=== PATIENT | male | born 1945 | race Caucasian/White ===

== ENCOUNTER → 2016-06-06 | Outpatient (CLI) | payer MEDICARE, OTHER ==
[~2016-06-06] MED LIST: ALLOPURINOL100 MG PO; ALTACE2.5 MG PO; ALTACE5 MG PO; ASPIRIN (CHILDR81 MG PO; ASPIRIN LO-DOSE81 MG PO; ATIVAN 1 MG1 MG PO; BRILINTA90 MG PO; BUMETANIDE2 MG PO; CARAFATE1 GM PO; CATAPRES0.1 MG PO; COLACE100 MG PO; COLCHICINE0.6 MG PO; CORDARONE,PACE200 MG PO; CPAP INH; DILAUDID 2MG(HYD2 MG PO; DIOVAN320 MG PO; FLORASTOR250 MG PO; GLUCOPHAGE XR500 M1 PO; HYDROCODON-ACE1 EAC4 PO; HYDRODIURIL25 MG PO; HYZAAR 50-12.51 TAB PO; JUICE PLUS; K-TAB ER20 MEQ PO; LEVAQUIN 750 M750 MG PO; LIPITOR20 M1 PO; LIPITOR40 MG PO; LIPITOR80 MG PO; LOPRESSOR25 MG PO; LOPRESSOR50 MG PO; MIRALAX17 GM PO; MOBIC15 MG PO; MUCINEX600 MG PO; NASACORT16.9 ML NOSE; NITROSTAT0.4 MG SL; NORCO 5-325 MG1 TAB PO; NORCO 5-325 TA1 EACH PO; NORVASC10 MG PO; NORVASC5 MG PO; PLAVIX75 MG PO; PROAIR HFA8.5 GM INH; PROTONIX20 MG PO; PROVENTIL OR V6.7 GM INH; RISPERDAL0.5 MG PO; SERTRALINE HCL100 MG PO; TYLENOL325 MG PO; VALIUM5 MG PO; VIAGRA100 MG PO; WAL-ZYR10 MG PO; XARELTO10 MG PO; ZESTRIL2.5 MG PO; ZOLOFT100 MG PO; ZYLOPRIM100 MG PO; ZYRTEC10 MG PO
--- NOTE | ~2016-06-06 | PUL ---
PATIENT'S NAME: MIGUEL MURPHY [facility] AGE: 70 Y [address] ROOM: [place] [address] LOCATION: [facility] ADMIT DATE: 06/06/2016 Pulmonary DISCHARGE DATE: FAMILY PHYSICIAN: Dell Brown MD ATTENDING PHYSICIAN: Dell Brown NAME OF PROCEDURE: Sleep study DATE OF PROCEDURE: 06/06/16 TECH: JANETH Cunha TEST #: [facility] [place] [id number] MEDICAL HISTORY: Patient is a 70-year-old gentleman with history of obstructive sleep apnea. SLEEP STAGE SUMMARY: The patient was studied for 492 minutes of which he slept 281 minutes. He fell asleep in 66 minutes and slept for 58% of the night. Sleep architecture revealed a decline in slow wave and REM sleep. RESPIRATORY SUMMARY: Oxygen saturations ranged from 85-90% and were below 88% for 10 minutes. This study was done to titrate CPAP which was initiated at 6cm and titrated to 16 cm with good control of the respiratory events. EKG SUMMARY: No dysrhythmias. LIMB MOVEMENT SUMMARY: No clinically relevant periodic limb movements were noted. SUMMARY: Impression obstructive sleep apnea responsive to CPAP at 16 cm. PLAN: Suggest CPAP at 16 cm. Patient will receive results from the ordering provider. JASMYN LEZAMA MD [facility]/ /[id number] dtt: 06/13/16 1455 , Jasmyn Lezama dtd: 06/08/16 1528
== END | disposition disaster alternative care site (69) ==
LOC: GSLP 19:34
DX: G47.33 Obstructive sleep apnea (adult) (pediatric) (principal)

== ENCOUNTER → 2016-08-21 | Day surgery (SDC) | payer MEDICARE, OTHER ==
[~2016-08-21] VITALS: Ht 180.3 cm; Wt 112.8 kg
--- NOTE | ~2016-08-21 | OR ---
PATIENT'S NAME: MIGUEL JUAREZ [facility] AGE: 70 Y [address] ROOM: [place] [address] LOCATION: [facility] – [place], [place] ADMIT DATE: 08/21/2016 OR/Procedure Report DISCHARGE DATE: FAMILY PHYSICIAN: Dell Brown MD ATTENDING PHYSICIAN: Gertrude Blackburn SURGEON: Gertrude Blackburn DO SUPERINTENDENT CONTAINER TERMINAL: DATE OF PROCEDURE: 08/21/2016 PREOPERATIVE DIAGNOSIS: Sternal malunion. POSTOPERATIVE DIAGNOSIS: Sternal malunion. PROCEDURES PERFORMED: Rigid fixation of the sternum with two sternal plates. BRIEF HISTORY: Mr. Juarez is a 70-year-old white male with the above noted diagnosis, who had been brought to the Operative Suite today after informed consent was obtained. DESCRIPTION OF SURGERY: His previous surgical incision and chest were sterilely prepped and draped in usual fashion after induction of a general anesthetic. The incision was opened from the mid incision to the anterior epigastric portion of the incision, and dissection was carried out to the level of the sternum with electrocautery. The sternum was mildly, or was minimally by approximately 5 mm at its maximum. There was some plate in each hemisternum, which the patient was complaining about. Dissection was carried out over the lateral hemisternum onto the rib surface. We selected two straight plates, and placed these on the fourth and sixth ribs with 16-mm screws to rigidly fix the hemisternum. Once this was completed, copious amounts of antibiotic-infused saline was used to irrigate the sternum, and then the incision was closed in a layered fashion with 0 Vicryl, 2-0 Vicryl, and 4-0 Monocryl. Pressure dressings were applied. The patient tolerated the procedure well. GERTRUDE BLACKBURN DO MCB/modl /[id number] d: 08/24/169 t: 08/25/16 0841, OPERATIVE SUMMARY
[2016-08-21 11:05] LABS: BASOPHIL % 0.3 %; EOSINOPHIL # 0.3 K/uL (0.0-0.5); EOSINOPHIL % 3.3 %; HEMOGLOBIN 13.2 g/dL (11.0-16.0); IMMATURE GRANULOCYTE % 0.3 %; LYMPHOCYTE # 1.1 K/uL (0.8-4.0); LYMPHOCYTE % 13.8 %; MCH 29.3 pg (27.0-34.0); MONOCYTE # 0.4 K/uL (0.0-1.0); MONOCYTE % 5.4 %; MPV 10.8 fl (9.4-12.4); NEUTROPHIL # (ANC) 5.8 K/uL (1.4-9.0); NEUTROPHIL % 76.9 %; NRBC % 0 /100WBC (0-0.00); RBC 4.51 M/uL (3.50-5.50); RDW-CV 14.1 % (11.9-14.6); WBC 7.6 K/uL (4.0-11.0)
[2016-08-21 11:06] LABS: HEMATOCRIT 38.8 % (37.0-53.0); PLATELET COUNT 145 K/uL (150-450)
[2016-08-21 11:13] LABS: INR - (THERAPEUTIC) 0.95 (0.92-1.07)
[2016-08-21 11:21] LABS: ALBUMIN 3.8 gm/dL (3.5-5.0); ANION GAP 11.9 (10.0-19.0); BLOOD UREA NITROGEN 20 mg/dL (6-24); CALCIUM 8.8 mg/dL (8.5-10.5); CHLORIDE 109 mMol/L (96-110); CO2 26 mMol/L (22-32); CREATININE 1.1 mg/dL (0.6-1.3); PHOSPHORUS 2.6 mg/dL (2.5-4.9); POTASSIUM 3.9 mMol/L (3.7-5.1); SODIUM 143 mMol/L (135-145)
[2016-08-21 11:26] LABS: ESTIMATED GFR (MDRD EQUATION) > 60
[2016-08-21 12:00] LABS: BILIRUBIN URINE NEGATIVE (NEGATIVE); BLOOD URINE NEGATIVE /UL (NEGATIVE); COLOR URINE YELLOW (YELLOW); GLUCOSE URINE NEGATIVE (NEGATIVE); KETONE URINE NEGATIVE (NEGATIVE); LEUKOCYTES URINE NEGATIVE /UL (NEGATIVE); NITRITE URINE NEGATIVE (NEGATIVE); PROTEIN URINE NEGATIVE (NEGATIVE); SPEC GRAVITY URINE 1.015 (1.003-1.035); TURBIDITY URINE CLEAR (CLEAR); UROBILINOGEN URINE NORMAL (NORMAL)
== END | disposition disaster alternative care site (69) ==
LOC: GPOC 07-27 08:00 → GSDC 07:00
PROVIDERS: Thoracic Surgery (Cardiothoracic Vascular Surgery)
PROC: 0PH000Z Insertion of Rigid Plate Internal Fixation Device into Sternum, Open Approach (ICD-10-PCS; principal; 2016-08-21)
DX: T81.32XA Disruption of internal operation (surgical) wound, not elsewhere classified, initial encounter (principal); I25.810 Atherosclerosis of coronary artery bypass graft(s) without angina pectoris; I12.9 Hypertensive chronic kidney disease with stage 1 through stage 4 chronic kidney disease, or unspecified chronic kidney disease; E11.22 Type 2 diabetes mellitus with diabetic chronic kidney disease; N18.3 Chronic kidney disease, stage 3 (moderate); Z95.1 Presence of aortocoronary bypass graft; Z79.899 Other long term (current) drug therapy
CPT/HCPCS: C1713; J0690; J1100; J2250; J2405; J3010; J7030